=== PATIENT | male | born 1970 | race Caucasian/White ===

== ENCOUNTER 2018-05-11 09:39 | Emergency (ER) | payer OTHER ==
[~2018-05-11] VITALS: Ht 162.6 cm; Wt 81.7 kg
[~2018-05-11 09:39] MED LIST: IBUPROFEN600 MG PO; LEVAQUIN750 MG PO; NORCO 5-325 TA1 EACH PO; TYLENOL325 MG PO
--- OUTSIDE RECORDS SUMMARY | 2018-05-11 09:42 | XMS ---
PreManage Notification: NELLY YANEZ Security Triage Licensed Practical Nurse Events No recent Security Events currently on file [facility] There are no care providers on record at this time. Margarito has no Care Guidelines for this patient. [facility] VISIT COUNT (12 MO.) 2 KELLIE Ren TOTAL 2 NOTE: Visits indicate total known visits. ED/UCC VISIT TRACKING (12 MO.) 05/11/2018 09:40 [facility] TYPE: Emergency COMPLAINT: - ABD PAIN 02/05/2018 16:[address] [facility] [place] TYPE: Emergency COMPLAINT: - R ARM PAIN/INJURY DIAGNOSES: - Unspecified displaced fracture of surgical neck of right humerus, initial encounter for closed fracture - Pain in right shoulder - Other fall from one level to another, initial encounter INPATIENT VISIT TRACKING (12 MO.) No inpatient visits to display in this time frame [email or web address]
[2018-05-11] MEDS ORDERED: FLAGYL500 MG PO (13:27)
[2018-05-11] MEDS ORDERED: CIPRO500 MG PO (13:27)
== END 2018-05-11 13:35 | disposition home or self-care (01) ==
LOC: ED 09:39
DX: K57.32 Diverticulitis of large intestine without perforation or abscess without bleeding (principal); Z86.73 Personal history of transient ischemic attack (TIA), and cerebral infarction without residual deficits
CPT/HCPCS: 74177; 76705; 80053; 81001; 83690; 85025; 96360; 96361; 99284-25; J7030; Q9967

== ENCOUNTER 2024-12-18 08:26 | Emergency (ER) | payer OTHER ==
[~2024-12-18] VITALS: Ht 162.6 cm; Wt 89.0 kg
[~2024-12-18 08:26] MED LIST changes: +CIPRO500 MG PO; +FLAGYL500 MG PO
[2024-12-18] MEDS ORDERED: DIPHTH,PERTUSS(ACELL),TET VAC 0.5 ML SYRINGE IM ONE (09:00)
[2024-12-18 10:17] VITALS: BP 129/99
== END 2024-12-18 10:18 | disposition home or self-care (01) ==
LOC: ED 08:26
DX: S51.011A Laceration without foreign body of right elbow, initial encounter (principal); W19.XXXA Unspecified fall, initial encounter; Z23 Encounter for immunization
CPT/HCPCS: 12002; 90471; 99282-25